=== PATIENT | female | born 1985 | race Native Hawaiian/Other Pacific Islander ===

== ENCOUNTER 2016-10-07 13:18 | Emergency (ER) | payer OTHER ==
[~2016-10-07] VITALS: Ht 157.5 cm; Wt 104.3 kg
[~2016-10-07 13:18] MED LIST: CYCL10TA35 PO; METO25TA4 PO; TOPAMAX25 MG PO
[2016-10-07 13:25] VITALS: TEMP 98.5
[2016-10-07 15:30] VITALS: BP 118/76
== END 2016-10-07 15:42 | disposition home or self-care (01) ==
LOC: ED 13:18
DX: I10 Essential (primary) hypertension (principal); G43.909 Migraine, unspecified, not intractable, without status migrainosus
CPT/HCPCS: 96361; 96374; 96375; 99284; J1100; J1200; J1885; J2405